=== PATIENT | male | born 1940 | race Caucasian/White ===

== ENCOUNTER 2024-02-11 21:35 | Emergency (ER) | payer MEDICARE, OTHER | END 2024-02-11 23:33 | disposition home or self-care (01) | LOC: CSHERS 21:35 | DX: S61.012A Laceration without foreign body of left thumb without damage to nail, initial encounter (principal); I10 Essential (primary) hypertension; Z79.899 Other long term (current) drug therapy; W26.0XXA Contact with knife, initial encounter; Y93.89 Activity, other specified; Y92.512 Supermarket, store or market as the place of occurrence of the external cause | CPT/HCPCS: 12001; 99282 ==